=== PATIENT | female | born 1935 | race Caucasian/White ===

== ENCOUNTER → 2018-07-16 | Outpatient (REF) | payer MEDICARE, OTHER ==
[~2018-07-16] MED LIST: AMLODIPINE5 MG; DIOVAN160 MG; LORTAB 5 OR; MAXZIDE; METOPROL TAR50 MG
[2018-07-16 09:30] LABS: HEMATOCRIT 43.8 % (37.0-47.0); IMMATURE GRANULOCYTES 0.4 % (0.0-5.0); MEAN CELL VOLUME 95.8 fL CALC (80.0-100.0); MEAN CORPUSCULAR HGB 30.6 pG CALC (26.0-32.0); NEUT# 2.57 thou/uL (2.00-7.15); RED BLOOD COUNT 4.57 mill/uL (4.20-5.60); RED CELL DISTRI WIDTH 13.4 % (11.5-15.5)
[2018-07-16 10:05] LABS: ALBUMIN 3.6 g/dL (3.2-5.0); ALKALINE PHOSPHATASE 85 u/l (38-126); ANION GAP 10 (6-22 (CALC)); BILIRUBIN, TOTAL 0.6 mg/dL (0.0-1.4); BUN 17 mg/dL (8-23); BUN/CREATININE RATIO 18 (12-20 (CALC)); CALCULATED LDLCHOLESTEROL 102 mg/dL (62-129 (CALC)); CARBON DIOXIDE 29 mmol/l (22-30); CHLORIDE 105 mmol/l (95-108); CHOLESTEROL HDL RATIO 3.2 (<4.4 (CALC)); CREATININE 0.9 mg/dL (0.5-1.0); GFR 60 ML/MIN (>=60 (CALC)); GFR FOR AFR.AMER. > 60 ML/MIN (>=60 (CALC)); HDL CHOLESTEROL 53 mg/dL (>=40); POTASSIUM 3.9 mmol/l (3.5-5.1); SGOT/AST 25 u/l (9-36); SODIUM 141 mmol/l (137-146); TOTAL CHOLESTEROL 169 mg/dl (0-199); TOTAL PROTEIN 6.2 g/dL (6.3-8.2); TOTAL TRIGLYCERIDES 67 mg/dl (30-149); VLDL CHOLESTROL 13 mg/dl (0-48 (CALC))
[2018-07-16 10:34] LABS: TSH, 3RD GENERATION 2.51 uIU/mL (0.47 - 4.68)
== END | disposition home or self-care (01) ==
LOC: LAB 08:26
PROVIDERS: ATTEND Nurse Practitioner Adult Health
DX: I10 Essential (primary) hypertension (principal); R53.1 Weakness; R53.83 Other fatigue; E78.49 Other hyperlipidemia

== ENCOUNTER 2021-11-11 09:11 | Emergency (ER) | payer MEDICARE, OTHER ==
[~2021-11-11] VITALS: Ht 165.1 cm; Wt 60.0 kg
[2021-11-11 09:19] VITALS: BP 125/62
[2021-11-11 09:31] VITALS: BP 99/62
[2021-11-11 09:45] VITALS: BP 117/59
[2021-11-11 10:01] VITALS: BP 95/69
[2021-11-11 10:31] VITALS: BP 111/50
[2021-11-11 10:53] VITALS: BP 111/50
== END 2021-11-11 10:53 | disposition home or self-care (01) ==
LOC: ED 09:11
DX: M79.671 Pain in right foot (principal); I10 Essential (primary) hypertension

== ENCOUNTER 2022-03-14 17:17 | Emergency (ER) | payer MEDICARE, OTHER ==
[~2022-03-14] VITALS: Ht 165.1 cm; Wt 90.0 kg
[2022-03-14 17:27] VITALS: BP 97/66
[2022-03-14 17:42] LABS: HEMATOCRIT 35.8 % (37.0-47.0); HEMOGLOBIN 11.8 g/dl (12.0-16.0); IMMATURE GRANULOCYTES 0.2 % (0.0-5.0); MEAN CORPUSCULAR HGB 31.3 pG CALC (26.0-32.0); NEUT# 3.04 thou/uL (2.00-7.15); RED BLOOD COUNT 3.77 mill/uL (4.20-5.60); RED CELL DISTRI WIDTH 13.2 % (11.5-15.5)
[2022-03-14 17:46] VITALS: BP 108/79
[2022-03-14 17:57] LABS: ALBUMIN 3.2 g/dL (3.2-5.0); CREATININE 1.2 mg/dL (0.5-1.0); POTASSIUM 2.8 mmol/l (3.5-5.1); TOTAL PROTEIN 5.5 g/dL (6.3-8.2)
[2022-03-14 18:01] LABS: BILIRUBIN, TOTAL 0.4 mg/dL (0.0-1.4)
[2022-03-14] MEDS ORDERED: CEPHALEXIN500 M1 PO (19:20)
[2022-03-14 19:27] VITALS: BP 108/79
== END 2022-03-14 19:50 | disposition home or self-care (01) ==
LOC: ED 17:17
PROVIDERS: Family Medicine
PROC: 0HQ0XZZ Repair Scalp Skin, External Approach (ICD-10-PCS; principal; 2022-03-14)
DX: S01.01XA Laceration without foreign body of scalp, initial encounter (principal); S06.0X0A Concussion without loss of consciousness, initial encounter; I10 Essential (primary) hypertension; W01.0XXA Fall on same level from slipping, tripping and stumbling without subsequent striking against object, initial encounter; Y92.009 Unspecified place in unspecified non-institutional (private) residence as the place of occurrence of the external cause